=== PATIENT | male | born 1990 | race Caucasian/White ===

== ENCOUNTER 2022-12-29 17:08 | Emergency (ER) | payer BC, OTHER ==
[2022-12-29] MEDS ORDERED: Sodium Chloride 0.9% 10 ML Syringe FLUSH PRN (17:25)
[2022-12-29] MEDS: cloNIDine 0.1 MG Tab PO ONE (17:30)
[2022-12-29 17:47] LABS: BASOPHILS ABSOLUTE AUTO 0.03 K/uL (0.00-0.20); BASOPHILS PERCENT AUTO 0.4 % (0.0-2.0); EOSINOPHILS ABSOLUTE AUTO 0.14 K/uL (0.00-0.50); EOSINOPHILS PERCENT AUTO 1.8 % (0.0-5.0); HEMATOCRIT 41.9 % (39.0-49.0); HEMOGLOBIN 15.2 g/dL (13.1-16.8); LYMPHOCYTES ABSOLUTE AUTO 3.16 K/uL (0.50-3.50); LYMPHOCYTES PERCENT AUTO 39.8 % (10.0-50.0); MEAN CORPUSCULAR HEMOGLOBIN 28.7 pg (28.2-33.3); MEAN CORPUSCULAR HGB CONC 36.3 g/dL (31.7-36.0); MEAN CORPUSCULAR VOLUME 79.2 fL (84.0-98.0); MONOCYTES PERCENT AUTO 12.6 % (2.0-14.0); NEUTROPHILS ABSOLUTE AUTO 3.61 K/uL (1.40-7.00); NEUTROPHILS PERCENT AUTO 45.4 % (45.0-80.0); PLATELET COUNT,PLT 281 K/uL (150-350); RED BLOOD CELL COUNT 5.29 M/uL (4.33-5.41); RED CELL DISTRIBUTION WIDTH 12.2 % (11.2-14.1); WHITE BLOOD CELL COUNT,WBC 7.9 K/uL (4.0-10.2)
[2022-12-29 18:08] LABS: ANION GAP 15.5 meq/L (7-15); CALCIUM 9.6 mg/dL (8.5-10.1); CARBON DIOXIDE,CO2 23.5 mmol/L (21.0-32.0); CREATININE 1.28 mg/dL (0.51-1.17); EST CRCL DRUG DOSING (CG) 76.75 mL/min; MAGNESIUM 1.7 mg/dL (1.8-2.4); POTASSIUM,K 3.8 mmol/L (3.5-5.1); PROTEIN TOTAL,TP 8.5 g/dL (6.4-8.2)
[2022-12-29] MEDS: Sodium Chloride 0.9% 1,000 ML IV ONE (18:43)
== END 2022-12-29 19:40 | disposition home or self-care (01) ==
LOC: LL.ED 17:08
DX: I10 Essential (primary) hypertension (principal); E86.0 Dehydration; E83.42 Hypomagnesemia; R74.8 Abnormal levels of other serum enzymes; Z88.0 Allergy status to penicillin; Z88.2 Allergy status to sulfonamides
CPT/HCPCS: 36415; 80053; 83735; 84443; 85025; 96365; 99284; 99284-25; A9270-GY; J3475; J7030